=== PATIENT | male | born 1980 | race Caucasian/White ===

== ENCOUNTER 2018-05-05 02:51 | Emergency (ER) | payer MEDICAID ==
[~2018-05-05] VITALS: Ht 188 cm; Wt 151.9 kg
[~2018-05-05 02:51] MED LIST: CHOL378P PO; FENO54TA PO; HYDR-569 PO; IBUP-1985 PO; LORA10TA7 PO; LOSA50TA37 PO; METO-384 PO; MONT10TA24 PO; ONDA4TAB6 PO; SULF1TAB49 PO
[2018-05-05] MEDS ORDERED: normal saline 1000ML IV soln IVB ONE (03:10)
[2018-05-05] MEDS ORDERED: morphine 4 MG/ML inj SYRINge IV ONE (03:10)
[2018-05-05] MEDS ORDERED: ondansetron/PF 4mg/2ml inj IV ONE (03:10)
[2018-05-05] MEDS ORDERED: iohexol 300mg/ml 100ml inj. ONE (03:16)
[2018-05-05 03:39] LABS: INR 0.9 INR; PARTIAL THROMBOPLASTIN TIME 23 SECONDS (22-32); PROTHROMBIN TIME 9.7 SECONDS (9.0-12.0)
[2018-05-05 03:44] LABS: ALANINE AMINOTRANSFERASE 37 U/L (12-78); ALBUMIN 3.4 G/DL (3.4-5.0); ALBUMIN/GLOBULIN RATIO 0.9 (1.1-1.5); ALKALINE PHOSPHATASE 66 IU/L (46-116); ANION GAP 8 (8-16); ASPARTATE AMINO TRANSFERASE 17 U/L (10-37); BASOPHILS # (AUTO) 0.1 X10'3 (0-0.2); BASOPHILS % (AUTO) 0.7 % (0-1); BILIRUBIN,TOTAL 0.6 MG/DL (0.1-1.0); BLOOD UREA NITROGEN 13 MG/DL (7-18); BUN/CREATININE RATIO 11.6 (5.4-32.0); CALCIUM 9.1 MG/DL (8.5-10.1); CHLORIDE 103 MMOL/L (99-107); CREATININE 1.12 MG/DL (0.60-1.10); EOSINOPHILS # (AUTO) 0.5 X10'3 (0-0.9); EOSINOPHILS % (AUTO) 2.6 % (0-6); GLUCOSE 112 MG/DL (70-104); HEMATOCRIT 47.7 % (42.0-52.0); HEMOGLOBIN 17.2 g/dl (14.0-17.9); LIPASE 109 U/L (73-393); LYMPHOCYTES # (AUTO) 6.7 X10'3 (1.1-4.8); LYMPHOCYTES % (AUTO) 34.6 % (21-51); MEAN CORPUSCULAR HEMOGLOBIN 31.9 PG (27.0-31.0); MEAN CORPUSCULAR VOLUME 88.6 FL (78-98); MEAN PLATELET VOLUME 9.1 FL (7.4-10.4); MONOCYTES # (AUTO) 0.9 X10'3 (0-0.9); MONOCYTES % (AUTO) 4.8 % (2-12); NEUTROPHILS # (AUTO) 11.1 X10'3 (1.8-7.7); NEUTROPHILS % (AUTO) 57.3 % (42-75); PLATELET COUNT 318 X10'3 (140-440); POTASSIUM 3.8 MMOL/L (3.5-5.1); RED BLOOD COUNT 5.38 X10'6 (4.70-6.10); RED CELL DISTRIBUTION WIDTH 14.3 % (11.5-14.5); SODIUM 138 MMOL/L (135-145); TOTAL CARBON DIOXIDE 26.9 MMOL/L (24-32); TOTAL PROTEIN 7.3 G/DL (6.4-8.2); WHITE BLOOD COUNT 19.3 X10'3 (4.5-11.0); eGFR 75 ML/MIN
[2018-05-05 04:13] VITALS: BP 140/92
[2018-05-05] MEDS ORDERED: HYDR-569 PO (04:34)
== END 2018-05-05 04:59 | disposition home or self-care (01) ==
LOC: ER 02:51
DX: K80.50 Calculus of bile duct without cholangitis or cholecystitis without obstruction (principal); I10 Essential (primary) hypertension; E78.00 Pure hypercholesterolemia, unspecified; F12.90 Cannabis use, unspecified, uncomplicated; Z88.8 Allergy status to other drugs, medicaments and biological substances; Z91.010 Allergy to peanuts
CPT/HCPCS: 36415; 74177; 80053; 83690; 84484; 85025; 85610; 85730; 93005; 96374; 96375; 99285; J2270; J2405; J7030; Q9967

== ENCOUNTER 2019-01-28 17:27 | Emergency (ER) | payer MEDICAID ==
[~2019-01-28] VITALS: Ht 188 cm; Wt 159.1 kg
[~2019-01-28 17:27] MED LIST changes: +HYDR-4383 PO; -HYDR-569 PO; -LOSA50TA37 PO; +LOSA50TA64 PO
[2019-01-28 18:39] LABS: BASOPHILS % (AUTO) 0.2 % (0-1); EOSINOPHILS # (AUTO) 0.5 X10'3 (0-0.9); HEMATOCRIT 44.9 % (42.0-52.0); HEMOGLOBIN 15.7 g/dl (14.0-17.9); LYMPHOCYTES % (AUTO) 36.6 % (21-51); MEAN CORPUSCULAR HEMOGLOBIN 30.4 PG (27.0-31.0); MEAN CORPUSCULAR HGB CONC 35.1 g/dL (33.0-36.5); MEAN CORPUSCULAR VOLUME 86.6 FL (78-98); MEAN PLATELET VOLUME 8.7 FL (7.4-10.4); MONOCYTES # (AUTO) 1.6 X10'3 (0-0.9); MONOCYTES % (AUTO) 9.7 % (2-12); NEUTROPHILS # (AUTO) 8.3 X10'3 (1.8-7.7); NEUTROPHILS % (AUTO) 50.5 % (42-75); PLATELET COUNT 476 X10'3 (140-440); RED BLOOD COUNT 5.18 X10'6 (4.70-6.10); RED CELL DISTRIBUTION WIDTH 14.3 % (11.5-14.5); WHITE BLOOD COUNT 16.4 X10'3 (4.5-11.0)
[2019-01-28 18:50] LABS: ALANINE AMINOTRANSFERASE 36 U/L (12-78); ALBUMIN 3.8 G/DL (3.4-5.0); ALKALINE PHOSPHATASE 60 IU/L (46-116); ANION GAP 13 (8-16); ASPARTATE AMINO TRANSFERASE 16 U/L (10-37); BILIRUBIN,TOTAL 0.5 MG/DL (0.1-1.0); BLOOD UREA NITROGEN 13 MG/DL (7-18); BUN/CREATININE RATIO 12.6 (5.4-32.0); CALCIUM 9.3 MG/DL (8.5-10.1); CHLORIDE 104 MMOL/L (99-107); CREATININE 1.03 MG/DL (0.60-1.10); GLUCOSE 92 MG/DL (70-104); POTASSIUM 3.8 MMOL/L (3.5-5.1); SODIUM 141 MMOL/L (135-145); TOTAL CARBON DIOXIDE 24.4 MMOL/L (24-32); TOTAL PROTEIN 7.6 G/DL (6.4-8.2); eGFR 82 ML/MIN
[2019-01-28 19:17] LABS: PARTIAL THROMBOPLASTIN TIME 31 SECONDS (22-32)
[2019-01-28] MEDS ORDERED: pantoprazole 40mg Tablet.DR PO STA (20:29)
[2019-01-28] MEDS ORDERED: ipratropium/albuterol 3ml nebule NEB ONE (20:30)
[2019-01-28 20:34] LABS: TOTAL CELLS COUNTED 100
[2019-01-28] MEDS ORDERED: OMEP40CA37 PO (20:34)
[2019-01-28] MEDS ORDERED: ALBU18HF2 IH (20:34)
[2019-01-28 20:36] LABS: PLATELET ESTIMATE INCREASED
[2019-01-28 20:37] LABS: LARGE PLATELETS FEW; POLYCHROMASIA FEW
[2019-01-28 21:19] VITALS: BP 126/78
== END 2019-01-28 21:20 | disposition home or self-care (01) ==
LOC: ER 17:27
DX: J20.9 Acute bronchitis, unspecified (principal); R10.13 Epigastric pain; E66.9 Obesity, unspecified; E78.00 Pure hypercholesterolemia, unspecified; I10 Essential (primary) hypertension; G89.29 Other chronic pain; F17.200 Nicotine dependence, unspecified, uncomplicated; Z90.89 Acquired absence of other organs; Z88.6 Allergy status to analgesic agent; Z91.010 Allergy to peanuts; Z79.899 Other long term (current) drug therapy
CPT/HCPCS: 36415; 71045; 80053; 84484; 85025; 85610; 85730; 93005; 94640; 94760; 99284

== ENCOUNTER 2019-03-16 11:43 | Emergency (ER) | payer MEDICAID ==
[~2019-03-16] VITALS: Ht 188 cm; Wt 159.1 kg
[~2019-03-16 11:43] MED LIST changes: +ALBU18HF2 IH
[2019-03-16] MEDS ORDERED: mag hydrox/Alum hydrox/simeth 30ml oral suspension PO ONE (12:15)
[2019-03-16] MEDS ORDERED: LORazepam 1 MG tablet PO ONE (12:15)
[2019-03-16] MEDS ORDERED: LIDOcaine Viscous 15ml cup PO ONE (12:15)
[2019-03-16] MEDS ORDERED: famotidine 20mg tablet PO ONE (12:15)
[2019-03-16 12:20] LABS: PARTIAL THROMBOPLASTIN TIME 31 SECONDS (22-32)
[2019-03-16 12:24] LABS: ALANINE AMINOTRANSFERASE 32 U/L (12-78); ALBUMIN 3.4 G/DL (3.4-5.0); ALBUMIN/GLOBULIN RATIO 0.9 (1.1-1.5); ALKALINE PHOSPHATASE 60 IU/L (46-116); ANION GAP 9 (8-16); ASPARTATE AMINO TRANSFERASE 15 U/L (10-37); BILIRUBIN,TOTAL 0.5 MG/DL (0.1-1.0); BLOOD UREA NITROGEN 10 MG/DL (7-18); CALCIUM 8.3 MG/DL (8.5-10.1); CHLORIDE 104 MMOL/L (99-107); CREATININE 0.91 MG/DL (0.60-1.10); GLUCOSE 105 MG/DL (70-104); POTASSIUM 3.7 MMOL/L (3.5-5.1); SODIUM 137 MMOL/L (135-145); eGFR > 90 ML/MIN
[2019-03-16 12:37] LABS: BASOPHILS # (AUTO) 0.3 X10'3 (0-0.2); EOSINOPHILS # (AUTO) 0.3 X10'3 (0-0.9); HEMATOCRIT 42.8 % (42.0-52.0); HEMOGLOBIN 15.1 g/dl (14.0-17.9); LYMPHOCYTES # (AUTO) 4.7 X10'3 (1.1-4.8); LYMPHOCYTES % (AUTO) 26.7 % (21-51); MEAN CORPUSCULAR HEMOGLOBIN 31.2 PG (27.0-31.0); MEAN CORPUSCULAR HGB CONC 35.3 g/dL (33.0-36.5); MEAN CORPUSCULAR VOLUME 88.4 FL (78-98); MEAN PLATELET VOLUME 8.6 FL (7.4-10.4); MONOCYTES # (AUTO) 1.6 X10'3 (0-0.9); MONOCYTES % (AUTO) 9.2 % (2-12); NEUTROPHILS # (AUTO) 10.6 X10'3 (1.8-7.7); NEUTROPHILS % (AUTO) 60.1 % (42-75); PLATELET COUNT 417 X10'3 (140-440); RED BLOOD COUNT 4.85 X10'6 (4.70-6.10); RED CELL DISTRIBUTION WIDTH 14.5 % (11.5-14.5); WHITE BLOOD COUNT 17.5 X10'3 (4.5-11.0)
[2019-03-16 12:53] LABS: D-DIMER < 0.19 MG/L FEU (0-0.50)
[2019-03-16 13:55] VITALS: BP 137/89
== END 2019-03-16 13:57 | disposition home or self-care (01) ==
LOC: ER 11:43
DX: R00.2 Palpitations (principal); R10.13 Epigastric pain; R07.89 Other chest pain; E78.00 Pure hypercholesterolemia, unspecified; I10 Essential (primary) hypertension; G89.29 Other chronic pain; Z98.890 Other specified postprocedural states; Z91.010 Allergy to peanuts; Z88.8 Allergy status to other drugs, medicaments and biological substances; Z79.2 Long term (current) use of antibiotics; Z79.899 Other long term (current) drug therapy
CPT/HCPCS: 36415; 71045; 80053; 84484; 85025; 85379; 85610; 85730; 93005; 99284

== ENCOUNTER 2020-04-20 01:41 | Emergency (ER) | payer MEDICAID ==
[~2020-04-20] VITALS: Ht 188 cm; Wt 170.0 kg
[~2020-04-20 01:41] MED LIST changes: -MONT10TA24 PO; +MONT10TA26 PO
[2020-04-20 01:49] VITALS: BP 159/117
[2020-04-20] MEDS ORDERED: ketorolac trometh. 30mg/ml inj. IV ONE (02:05)
[2020-04-20] MEDS ORDERED: famotidine 20mg tablet PO ONE (02:05)
[2020-04-20] MEDS ORDERED: ondansetron/PF 4mg/2ml inj IV ONE (02:05)
[2020-04-20] MEDS ORDERED: pantoprazole 40 MG vial IV ONE (02:05)
[2020-04-20] MEDS ORDERED: acetaminophen 325mg tablet PO ONE (02:05)
[2020-04-20 02:07] LABS: BASOPHILS # (AUTO) 0.2 X10'3 (0-0.2); EOSINOPHILS # (AUTO) 0.4 X10'3 (0-0.9); EOSINOPHILS % (AUTO) 2.9 % (0-6); LYMPHOCYTES # (AUTO) 5.9 X10'3 (1.1-4.8); LYMPHOCYTES % (AUTO) 38.8 % (21-51); MEAN CORPUSCULAR HEMOGLOBIN 31.3 PG (27.0-31.0); MEAN CORPUSCULAR HGB CONC 35.6 g/dL (33.0-36.5); MEAN PLATELET VOLUME 8.5 FL (7.4-10.4); MONOCYTES # (AUTO) 1.6 X10'3 (0-0.9); MONOCYTES % (AUTO) 10.8 % (2-12); NEUTROPHILS % (AUTO) 46.5 % (42-75); PLATELET COUNT 463 X10'3 (140-440); RED BLOOD COUNT 5.11 X10'6 (4.70-6.10); RED CELL DISTRIBUTION WIDTH 14.8 % (11.5-14.5); WHITE BLOOD COUNT 15.1 X10'3 (4.5-11.0)
[2020-04-20 02:22] LABS: ALANINE AMINOTRANSFERASE 54 U/L (12-78); ALBUMIN 3.8 G/DL (3.4-5.0); ALBUMIN/GLOBULIN RATIO 0.9 (1.1-1.5); ALKALINE PHOSPHATASE 74 IU/L (46-116); AMYLASE 45 U/L (25-115); ANION GAP 10 (8-16); ASPARTATE AMINO TRANSFERASE 20 U/L (10-37); BILIRUBIN,TOTAL 0.4 MG/DL (0.1-1.0); BLOOD UREA NITROGEN 13 MG/DL (7-18); BUN/CREATININE RATIO 10.4 (5.4-32.0); CALCIUM 9.1 MG/DL (8.5-10.1); CHLORIDE 104 MMOL/L (99-107); CREATININE 1.25 MG/DL (0.60-1.10); GLUCOSE 112 MG/DL (70-104); LIPASE 114 U/L (73-393); SODIUM 139 MMOL/L (135-145); TOTAL CARBON DIOXIDE 25.5 MMOL/L (24-32); eGFR 65 ML/MIN
[2020-04-20 02:36] LABS: CLARITY,URINE CLEAR (Clear); COLOR,URINE YELLOW (Yellow); GLUCOSE, URINE NEGATIVE (Neg); KETONES,URINE NEGATIVE (Neg); LEUKOCYTE ESTERASE ,URINE NEGATIVE (Neg); NITRITES, URINE NEGATIVE (Neg); OCCULT BLOOD,URINE TRACE-INTACT (Neg); PROTEIN,URINE NEGATIVE (Neg); UROBILINOGEN,URINE 0.2 E.U/dL (0.2-1.0)
[2020-04-20 02:42] LABS: UA COLLECTION TYPE NON-SPECIFIED
[2020-04-20 02:43] LABS: BACTERIA,URINE NONE SEEN /HPF (Neg); RBC,URINE 0-2 /HPF (0-2); SQUAMOUS EPITHELIAL CELL,UR FEW /LPF (FEW); WBC,URINE NONE SEEN /HPF (0-4)
[2020-04-20] MEDS ORDERED: PANT-47 PO (03:09)
[2020-04-20] MEDS ORDERED: BISA-78 PO (03:09)
== END 2020-04-20 03:23 | disposition home or self-care (01) ==
LOC: ER 01:41
DX: R10.84 Generalized abdominal pain (principal); R11.0 Nausea; M54.5 Low back pain; E78.00 Pure hypercholesterolemia, unspecified; I10 Essential (primary) hypertension; G89.29 Other chronic pain; Z98.890 Other specified postprocedural states; Z72.89 Other problems related to lifestyle; Z88.8 Allergy status to other drugs, medicaments and biological substances; Z91.010 Allergy to peanuts; Z79.2 Long term (current) use of antibiotics; Z79.899 Other long term (current) drug therapy
CPT/HCPCS: 36415; 74176; 80053; 81001; 82150; 83690; 85025; 96374; 96375; 99284; C9113; J1885; J2405

== ENCOUNTER 2022-07-08 09:47 | Emergency (ER) | payer MEDICAID ==
[~2022-07-08] VITALS: Ht 188 cm; Wt 160.9 kg
[~2022-07-08 09:47] MED LIST changes: +BISA-78 PO; -CHOL378P PO; +CHOL378P13 PO; +MONT-40 PO; -MONT10TA26 PO; +PANT-47 PO
[2022-07-08 09:57] VITALS: BP 197/121
--- NOTE | 2022-07-08 11:09 | NUR ---
I attempted to call patient back to a room, patient was not in lobby x 3. Called patients listed number with no answer. Dr. Bob aware.
== END 2022-07-08 11:13 | disposition left against medical advice (07) ==
LOC: ER 09:47
DX: R10.9 Unspecified abdominal pain (principal); Z53.21 Procedure and treatment not carried out due to patient leaving prior to being seen by health care provider

== ENCOUNTER 2022-09-28 09:38 | Emergency (ER) | payer MEDICAID ==
[~2022-09-28] VITALS: Ht 188 cm; Wt 163.4 kg
[2022-09-28] MEDS ORDERED: sulfamethoxazole/trimethoprim DS (800/160mg) tablet PO ONE (11:05)
[2022-09-28] MEDS ORDERED: LIDOcaine 1% W/epiNEPHrine 1:100,000 20ml vial SQ ONE (11:05)
[2022-09-28] MEDS ORDERED: SULF1TAB49 PO (11:32)
[2022-09-28] MEDS ORDERED: CEPH500C2 PO (11:38)
[2022-09-28] MEDS ORDERED: cephalexin 500mg capsule PO ONE (11:40)
[2022-09-28 12:12] VITALS: BP 163/108
== END 2022-09-28 12:19 | disposition home or self-care (01) ==
LOC: ER 09:39
DX: L02.01 Cutaneous abscess of face (principal); E78.00 Pure hypercholesterolemia, unspecified; I10 Essential (primary) hypertension; E11.9 Type 2 diabetes mellitus without complications; Z88.8 Allergy status to other drugs, medicaments and biological substances; Z91.010 Allergy to peanuts
CPT/HCPCS: 10060; 99283; J3490; A6449

== ENCOUNTER 2023-03-24 11:47 | Emergency (ER) | payer MEDICAID ==
[~2023-03-24] VITALS: Ht 188 cm; Wt 161.4 kg
[2023-03-24 12:00] VITALS: BP 121/88
[2023-03-24] MEDS ORDERED: TETanus/Pertussis (Acell)/Diphther VAC/PF (Tdap-Adult) 0.5ml syringe IMVAC ONE (13:15)
[2023-03-24] MEDS ORDERED: LIDOcaine 1% W/epiNEPHrine 1:100,000 20ml vial IJ ONE (13:15)
[2023-03-24] MEDS ORDERED: CEPH250T PO (13:46)
== END 2023-03-24 13:54 | disposition home or self-care (01) ==
LOC: ER 11:48
DX: L02.811 Cutaneous abscess of head [any part, except face] (principal); I10 Essential (primary) hypertension; E78.00 Pure hypercholesterolemia, unspecified; E11.9 Type 2 diabetes mellitus without complications; Z88.8 Allergy status to other drugs, medicaments and biological substances; Z91.010 Allergy to peanuts
CPT/HCPCS: 10060; 90471; 90715; 99283

== ENCOUNTER 2023-03-26 20:15 | Emergency (ER) | payer MEDICAID ==
[~2023-03-26] VITALS: Ht 188 cm; Wt 143.2 kg
[~2023-03-26 20:15] MED LIST changes: +CEPH250T PO
[2023-03-26 20:17] VITALS: BP 133/105
== END 2023-03-26 23:51 | disposition left against medical advice (07) ==
LOC: ER 20:15
DX: L02.11 Cutaneous abscess of neck (principal); Z53.21 Procedure and treatment not carried out due to patient leaving prior to being seen by health care provider
CPT/HCPCS: 99281

== ENCOUNTER 2023-09-02 17:43 | Emergency (ER) | payer MEDICAID ==
[~2023-09-02] VITALS: Ht 190.5 cm; Wt 168.5 kg
[~2023-09-02 17:43] MED LIST changes: -CEPH250T PO
[2023-09-02] MEDS ORDERED: ketorolac trometh. 30mg/ml inj. IM ONE (19:00)
[2023-09-02] MEDS ORDERED: IBUP-1984 PO (19:08)
[2023-09-02 19:35] VITALS: BP 162/96; PULSE 74; RESP 18; TEMP 98.7; O2SAT 97
== END 2023-09-02 19:39 | disposition home or self-care (01) ==
LOC: ER 17:43
DX: S83.8X2A Sprain of other specified parts of left knee, initial encounter (principal); E78.00 Pure hypercholesterolemia, unspecified; I10 Essential (primary) hypertension; G89.29 Other chronic pain; Z98.890 Other specified postprocedural states; Z72.89 Other problems related to lifestyle; Z88.8 Allergy status to other drugs, medicaments and biological substances; Z91.010 Allergy to peanuts; Z79.899 Other long term (current) drug therapy; X58.XXXA Exposure to other specified factors, initial encounter; Y93.89 Activity, other specified; Y92.89 Other specified places as the place of occurrence of the external cause; Y99.8 Other external cause status
CPT/HCPCS: 73564; 96372; 99283; J1885

== ENCOUNTER 2024-03-03 08:40 | Emergency (ER) | payer MEDICAID ==
[~2024-03-03] VITALS: Ht 188 cm; Wt 170.4 kg
[2024-03-03 09:10] VITALS: BP 209/123; PULSE 77; RESP 20; TEMP 97.8; O2SAT 97
== END 2024-03-03 12:24 | disposition left against medical advice (07) ==
LOC: ER 08:41
DX: M54.50 Low back pain, unspecified (principal); Z53.21 Procedure and treatment not carried out due to patient leaving prior to being seen by health care provider

== ENCOUNTER 2024-03-04 07:55 | Emergency (ER) | payer MEDICAID ==
[~2024-03-04] VITALS: Ht 188 cm; Wt 167.8 kg
[2024-03-04] MEDS: orphenadrine citrate 60mg/2ml inj. IM ONE (10:18)
[2024-03-04] MEDS: morphine 2 MG/ML inj. syringe IV PRN (10:18)
[2024-03-04] MEDS: ketorolac tromethamine 15mg/ml inj. IV ONE (10:18)
[2024-03-04] MEDS: normal saline 1000ML IV soln IVB ONE (10:19)
[2024-03-04 10:21] LABS: BASOPHILS # (AUTO) 0.2 X10'3 (0-0.2); BASOPHILS % (AUTO) 1.1 % (0-1); EOSINOPHILS # (AUTO) 0.4 X10'3 (0-0.9); EOSINOPHILS % (AUTO) 2.3 % (0-6); HEMOGLOBIN 15.9 g/dl (14.0-17.9); LYMPHOCYTES # (AUTO) 3.5 X10'3 (1.1-4.8); LYMPHOCYTES % (AUTO) 22.1 % (21-51); MEAN CORPUSCULAR HEMOGLOBIN 30.3 PG (27.0-31.0); MEAN CORPUSCULAR HGB CONC 35.3 g/dL (33.0-36.5); MEAN CORPUSCULAR VOLUME 85.8 FL (78-98); MEAN PLATELET VOLUME 9.4 FL (7.4-10.4); MONOCYTES # (AUTO) 1.3 X10'3 (0-0.9); MONOCYTES % (AUTO) 8.2 % (2-12); NEUTROPHILS # (AUTO) 10.6 X10'3 (1.8-7.7); NEUTROPHILS % (AUTO) 66.3 % (42-75); PLATELET COUNT 475 X10'3 (140-440); RED BLOOD COUNT 5.24 X10'6 (4.70-6.10)
[2024-03-04 10:40] LABS: ALANINE AMINOTRANSFERASE 36 U/L (12-78); ALBUMIN 3.8 G/DL (3.4-5.0); ALBUMIN/GLOBULIN RATIO 0.8 (1.1-1.5); ALKALINE PHOSPHATASE 66 IU/L (46-116); ANION GAP 11 (8-16); ASPARTATE AMINO TRANSFERASE 21 U/L (10-37); BILIRUBIN,DIRECT 0.1 MG/DL (0-0.3); BILIRUBIN,TOTAL 0.7 MG/DL (0.1-1.0); BLOOD UREA NITROGEN 16 MG/DL (7-18); BUN/CREATININE RATIO 21.3 (10.0-20.0); CHLORIDE 103 MMOL/L (99-107); CREATININE 0.75 MG/DL (0.60-1.10); GLUCOSE 114 MG/DL (70-104); POTASSIUM 3.7 MMOL/L (3.5-5.1); SODIUM 135 MMOL/L (135-145); TOTAL CARBON DIOXIDE 20.6 MMOL/L (24-32); TOTAL PROTEIN 8.3 G/DL (6.4-8.2); eCRCL 151 ML/MIN; eGFR > 90 ML/MIN
[2024-03-04 11:08] LABS: BILIRUBIN,URINE NEGATIVE (Neg); CLARITY,URINE CLEAR (Clear); COLOR,URINE YELLOW (Yellow); GLUCOSE, URINE NEGATIVE (Neg); KETONES,URINE NEGATIVE (Neg); LEUKOCYTE ESTERASE ,URINE NEGATIVE (Neg); NITRITES, URINE NEGATIVE (Neg); OCCULT BLOOD,URINE NEGATIVE (Neg); PROTEIN,URINE NEGATIVE (Neg); UROBILINOGEN,URINE 0.2 E.U/dL (0.2-1.0)
[2024-03-04] MEDS: morphine 4 MG/ML inj SYRINge IV ONE ×2 (11:10→12:17)
[2024-03-04 11:13] LABS: UA COLLECTION TYPE NON-SPECIFIED
[2024-03-04 11:31] LABS: URINE AMPHETAMINE SCREEN NEGATIVE (Neg); URINE BARBITUATE SCREEN NEGATIVE (Neg); URINE BENZODIAZEPINES SCREEN NEGATIVE (Neg); URINE CANNABINOID SCREEN POSITIVE (Neg); URINE COCAINE SCREEN NEGATIVE (Neg); URINE METHADONE SCREEN NEGATIVE (Neg); URINE PHENCYCLIDINE SCREEN NEGATIVE (Neg)
[2024-03-04] MEDS: HYDROmorphone inj. 0.5 MG/0.5 ML DISP.SYRIN IV ONE (16:53)
[2024-03-05] MEDS: HYDROmorphone 1 mg/ml syringe IV ONE ×2 (10:18→13:37)
[2024-03-05] MEDS: ondansetron/PF 4mg/2ml inj IV ONE (13:36)
[2024-03-05] MEDS: triamcinolone acetonide 40mg/ml inj IM ONE (15:08)
[2024-03-05] MEDS: ketorolac trometh. 30mg/ml inj. IM ONE (15:08)
[2024-03-05 15:13] VITALS: BP 155/90; PULSE 71; RESP 15; TEMP 98.9; O2SAT 99
== END 2024-03-05 15:14 | disposition left against medical advice (07) ==
LOC: ER 07:55
DX: M54.50 Low back pain, unspecified (principal); E66.01 Morbid (severe) obesity due to excess calories; G89.29 Other chronic pain; E78.00 Pure hypercholesterolemia, unspecified; I10 Essential (primary) hypertension; E11.9 Type 2 diabetes mellitus without complications; M54.2 Cervicalgia; Z88.8 Allergy status to other drugs, medicaments and biological substances; Z79.899 Other long term (current) drug therapy; Z91.030 Bee allergy status; Z91.010 Allergy to peanuts
CPT/HCPCS: 72131; 80048; 80076; 80305; 81003; 85025; 93971; 96361; 96372; 96374; 96375; 96376; 99285; J1170; J1885; J2270; J2360; J2405; J3301; J7030

== ENCOUNTER → 2024-03-31 | Outpatient (CLI) | payer MEDICAID ==
[~2024-03-31] MED LIST changes: +iohexol 300mg/ml 100ml inj. ONE
== END | disposition home or self-care (01) ==
LOC: RAD 15:57
PROVIDERS: ATTEND Nurse Practitioner Family
DX: K57.30 Diverticulosis of large intestine without perforation or abscess without bleeding (principal); R79.89 Other specified abnormal findings of blood chemistry; I10 Essential (primary) hypertension; F10.11 Alcohol abuse, in remission; R16.0 Hepatomegaly, not elsewhere classified; M54.50 Low back pain, unspecified; M25.561 Pain in right knee; R00.0 Tachycardia, unspecified; E66.01 Morbid (severe) obesity due to excess calories; M47.815 Spondylosis without myelopathy or radiculopathy, thoracolumbar region; R03.0 Elevated blood-pressure reading, without diagnosis of hypertension
CPT/HCPCS: 74160; Q9967

== ENCOUNTER 2024-12-12 01:07 | Emergency (ER) | payer MEDICAID ==
[~2024-12-12] VITALS: Ht 188 cm; Wt 166.2 kg
[~2024-12-12 01:07] MED LIST changes: -ALBU18HF2 IH; +ARIP5TAB53 PO; -BISA-78 PO; -CHOL378P13 PO; -FENO54TA PO; -HYDR-4383 PO; +LINE600T12 PO; -LORA10TA7 PO; -LOSA50TA64 PO; -METO-384 PO; -MONT-40 PO; +OLME20TA69 PO; -ONDA4TAB6 PO; -PANT-47 PO; -SULF1TAB49 PO; -iohexol 300mg/ml 100ml inj. ONE
[2024-12-12 02:37] LABS: BASOPHILS # (AUTO) 0.2 X10'3 (0-0.2); BASOPHILS % (AUTO) 1.1 % (0-1); EOSINOPHILS # (AUTO) 0.8 X10'3 (0-0.9); EOSINOPHILS % (AUTO) 3.6 % (0-6); HEMATOCRIT 42.6 % (42.0-52.0); HEMOGLOBIN 14.9 g/dl (14.0-17.9); LYMPHOCYTES # (AUTO) 5.7 X10'3 (1.1-4.8); LYMPHOCYTES % (AUTO) 26.7 % (21-51); MEAN CORPUSCULAR HEMOGLOBIN 30.6 PG (27.0-31.0); MEAN CORPUSCULAR HGB CONC 35.1 g/dL (33.0-36.5); MEAN CORPUSCULAR VOLUME 87.3 FL (78-98); MEAN PLATELET VOLUME 7.9 FL (7.4-10.4); MONOCYTES # (AUTO) 2.2 X10'3 (0-0.9); MONOCYTES % (AUTO) 10.2 % (2-12); NEUTROPHILS # (AUTO) 12.6 X10'3 (1.8-7.7); NEUTROPHILS % (AUTO) 58.4 % (42-75); PLATELET COUNT 579 X10'3 (140-440); RED BLOOD COUNT 4.88 X10'6 (4.70-6.10); RED CELL DISTRIBUTION WIDTH 14.7 % (11.5-14.5); WHITE BLOOD COUNT 21.5 X10'3 (4.5-11.0)
[2024-12-12 03:01] LABS: ALANINE AMINOTRANSFERASE 45 U/L (12-78); ALBUMIN 3.2 G/DL (3.4-5.0); ALBUMIN/GLOBULIN RATIO 0.8 (1.1-1.5); ALKALINE PHOSPHATASE 72 IU/L (46-116); ANION GAP 11 (8-16); ASPARTATE AMINO TRANSFERASE 13 U/L (10-37); BILIRUBIN,TOTAL 0.3 MG/DL (0.1-1.0); BLOOD UREA NITROGEN 10 MG/DL (7-18); BUN/CREATININE RATIO 13.7 (10.0-20.0); CALCIUM 8.5 MG/DL (8.5-10.1); CHLORIDE 105 MMOL/L (99-107); CREATININE 0.73 MG/DL (0.60-1.10); GLUCOSE 144 MG/DL (70-104); POTASSIUM 3.9 MMOL/L (3.5-5.1); SODIUM 140 MMOL/L (135-145); TOTAL CARBON DIOXIDE 24.1 MMOL/L (24-32); TOTAL PROTEIN 7.2 G/DL (6.4-8.2); eCRCL 153 ML/MIN; eGFR > 90 ML/MIN
[2024-12-12 03:09] LABS: TOTAL CELLS COUNTED 100
[2024-12-12] MEDS: ketorolac trometh 30MG/ML vial 30 MG/ML VIAL IM ONE (03:32)
[2024-12-12] MEDS: HYDROmorphone 2mg tablet PO PRN (03:33)
[2024-12-12] MEDS ORDERED: HYDR-3965 PO (03:43)
[2024-12-12] MEDS ORDERED: NAPR-56 PO (03:43)
[2024-12-12] MEDS: linezolid 600mg tablet PO ONE (03:59)
[2024-12-12 04:26] VITALS: BP 142/81; PULSE 78; RESP 18; TEMP 98.5; O2SAT 98
== END 2024-12-12 04:32 | disposition home or self-care (01) ==
LOC: ER 01:08
DX: M25.552 Pain in left hip (principal); L03.116 Cellulitis of left lower limb; E78.00 Pure hypercholesterolemia, unspecified; E11.9 Type 2 diabetes mellitus without complications; I10 Essential (primary) hypertension; Z88.1 Allergy status to other antibiotic agents; Z88.8 Allergy status to other drugs, medicaments and biological substances; Z79.899 Other long term (current) drug therapy; G89.29 Other chronic pain; Z72.89 Other problems related to lifestyle
CPT/HCPCS: 36415; 80053; 83605; 84145; 85007; 85025; 87040; 93005; 96372; 99285; J1885